=== PATIENT | male | born 1980 | race Caucasian/White ===

== ENCOUNTER 2020-02-12 15:07 | Emergency (ER) | payer SELFPAY ==
[~2020-02-12] VITALS: Ht 185.4 cm; Wt 90.7 kg
[2020-02-12 15:19] VITALS: BP_SYST 133
[2020-02-12] MEDS ORDERED: NACL 0.9% 1,000 ML IV ONE ×2 (15:30→17:45)
[2020-02-12] MEDS ORDERED: ONDANSETRON HCL 4 MG/2 ML VIAL IVP ONE (15:30)
[2020-02-12 16:02] LABS: BASOPHILS % (AUTO) 0.3 % (0.0-2.0); EOSINOPHILS % (AUTO) 0.3 % (0.0-4.0); HEMOGLOBIN 14.7 g/dL (14.0-18.0); LYMPHOCYTES # (AUTO) 1.4 K/uL (1.0-5.5); LYMPHOCYTES % (AUTO) 13.1 % (20.5-51.5); MEAN CORPUSCULAR HEMOGLOBIN 29 pg (27-31); MEAN CORPUSCULAR HGB CONC 33 % (32-36); MEAN CORPUSCULAR VOLUME 89 fL (79.0-98.0); MONOCYTES # (AUTO) 0.9 K/uL (0.0-1.0); MONOCYTES % (AUTO) 8.4 % (1.7-9.3); NEUTROPHILS # (AUTO) 8.4 K/uL (1.8-7.7); NEUTROPHILS % (AUTO) 77.9 % (40.0-70.0); PLATELET COUNT (AUTO) 231 K/uL (130-430); RED BLOOD CELL COUNT(AUTO) 5.06 MIL/uL (4.2-6.2); RED CELL DISTRIBUTION WIDTH 13.1 % (9.0-15.0); WHITE BLOOD COUNT (AUTO) 10.8 K/uL (4.8-10.8)
[2020-02-12 16:12] LABS: CALCIUM 8.7 mg/dL (8.4-11.0); CREATININE 1.41 mg/dL (0.55-1.30); POTASSIUM 3.4 mmol/L (3.5-5.1)
[2020-02-12 16:15] LABS: INR 1.1 (0.80-1.20); PROTHROMBIN TIME 10.6 SECS (9.5-12.5)
[2020-02-12 16:18] LABS: TOTAL BILIRUBIN 0.4 mg/dL (0.0-1.0)
[2020-02-12 17:10] LABS: CREATINE KINASE MB 5.2 ng/mL (0-3.6)
[2020-02-12 18:39] VITALS: BP_SYST 140
== END 2020-02-12 18:38 | disposition home or self-care (01) ==
LOC: SED 15:07
DX: E86.0 Dehydration (principal); R11.2 Nausea with vomiting, unspecified; R51 Headache
CPT/HCPCS: 36415; 70450; 80053; 81002; 82550; 82553; 83605; 84484; 85025; 85610; 85730; 96361; 96374; 99284; J2405; J7030